=== PATIENT | male | born 1945 | race Two or more races ===

== ENCOUNTER → 2017-09-22 | Emergency (ER) | payer OTHER ==
[~2017-09-22] VITALS: Ht 177.8 cm; Wt 83.9 kg
[~2017-09-22] MED LIST: GLUCOPHAGE XR500 MG
== END | disposition home or self-care (01) ==
LOC: ER 20:57
DX: J06.9 Acute upper respiratory infection, unspecified (principal); E86.0 Dehydration; R50.9 Fever, unspecified